=== PATIENT | male | born 1985 | race African-American/Black ===

== ENCOUNTER 2016-04-01 22:59 | Emergency (ER) | payer BC ==
[~2016-04-01] VITALS: Ht 172.7 cm; Wt 77.1 kg
[~2016-04-01 22:59] MED LIST: HYDR-2666 PO; NAPR375T3 PO
[2016-04-01 23:14] VITALS: BP 144/60
[2016-04-01] MEDS ORDERED: KETOROLAC TROMETHAMINE 30 MG/ML SYRINGE. IV ONE (23:30)
[2016-04-01 23:53] LABS: BILIRUBIN,URINE NEGATIVE (NEG); GLUCOSE,URINE NEGATIVE (NEG); NITRITE,URINE NEGATIVE (NEG); PROTEIN,URINE NEGATIVE (NEG-TRACE)
[2016-04-02 00:19] LABS: RBC,URINE OCC /HPF (0-2)
[2016-04-02 00:20] LABS: BACTERIA,URINE 0 /HPF (0-FEW); SQUAMOUS EPITHELIAL CELL,UR OCC /LPF
--- NOTE | 2016-04-02 00:30 | PHYS DOC ---
Past Medical History Past Medical History: No Pertinent History Past Surgical History: Cholecystectomy, Other Additional Past Surgical Histo: HERNIA REPAIR Alcohol Use: Occasionally Drug Use: None Adult General Chief Complaint Chief Complaint: TESTICULAR PAIN OR INJURY HPI HPI Patient is a 30 year old male who presents with sudden onset bilateral testicle pain that is worse on the right than left. He feels his testicles are twisting. He also feels penile pain. States symptoms started one hour ago while he was driving and are improving while being here. He has never had this sensation before. He denies dysuria, hematuria, abdominal pain, trauma, swelling , discoloration, penile discharge. Review of Systems Review of Systems Constitutional: Denies fever or chills [] Eyes: Denies change in visual acuity, redness, or eye pain [] HENT: Denies nasal congestion or sore throat [] Respiratory: Denies cough or shortness of breath [] Cardiovascular: No additional information not addressed in HPI [] GI: Denies abdominal pain, nausea, vomiting, bloody stools or diarrhea [] : Denies dysuria or hematuria [] Musculoskeletal: Denies back pain or joint pain [] Integument: Denies rash or skin lesions [] Neurologic: Denies headache, focal weakness or sensory changes [] Endocrine: Denies polyuria or polydipsia [] Current Medications Current Medications Current Medications Medications (Trade) Dose Ordered Sig/[facility] Start Time Stop Time Status Last Admin Dose Admin Ketorolac Tromethamine (Toradol) 15 mg 1X ONCE 04/01/16 23:30 04/01/16 23:31 DC 04/01/16 23:43 15 MG Allergies Allergies Allergies Coded Allergies Type Severity Reaction Last Updated Verified No Known Drug Allergies 05/17/14 No Physical Exam Physical Exam Constitutional: Well developed, well nourished, no acute distress, non-toxic appearance. [] HENT: Normocephalic, atraumatic, bilateral external ears normal, oropharynx moist, nose normal. [] Eyes: PERRLA, EOMI. [] Neck: Normal range of motion, supple. [] Cardiovascular:Heart rate regular rhythm [] Lungs & Thorax: Bilateral breath sounds clear to auscultation [] Abdomen: Bowel sounds normal, soft, no tenderness. [] Genitourinary: Normal-appearing external genitalia, no penile discharge or lesions, normal-appearing scrotum, no scrotum or testicle swelling or discoloration, moderate tenderness along right spermatic cord with no palpable abnormality, appropriately tender testicles with normal lie, no palpable inguinal hernias Skin: Warm, dry, no erythema, no rash. [] Back: No tenderness, no CVA tenderness. [] Extremities: ROM intact, no edema. [] Neurologic: Alert and oriented X 3, normal motor function, normal sensory function, no focal deficits noted. [] Psychologic: Affect normal, judgement normal, mood normal. [] Current Patient Data Vital Signs Vital Signs Date Time Temp Pulse Resp B/P Pulse Ox O2 Delivery O2 Flow Rate FiO2 04/01/16 23:14 99.5 108 20 144/60 98 Room Air 99.5 Lab Values Laboratory Tests Test 04/01/16 23:40 Urine Collection Type Unknown Urine Color Yellow Urine Clarity Clear Urine pH 7.0 Urine Specific [place] 1.015 Urine Protein Negativemg/dL (NEG-TRACE) Urine Glucose (UA) Negativemg/dL (NEG) Urine Ketones (Stick) Negativemg/dL (NEG) Urine Blood Negative (NEG) Urine Nitrite Negative (NEG) Urine Bilirubin Negative (NEG) Urine Urobilinogen Dipstick 1.0mg/dL (0.2 mg/dL) Urine Leukocyte Esterase Negative (NEG) Urine RBC Occ/HPF (0-2) Urine WBC 1-4/HPF (0-4) Urine Squamous Epithelial Cells Occ/LPF Urine Bacteria 0/HPF (0-FEW) Urine Mucus Slight/LPF Radiology/Procedures Radiology/Procedures Ultrasound scrotum testicles IMPRESSION - Normal blood flow identified in the bilateral testis. - Small bilateral epididymal cysts. 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 - Mild varicocele on the left. Electronically signed by: Martin Beckwith (Apr 02, 2016 00:45:53) Course & Med Decision Making Course & Med Decision Making Pertinent Labs and Imaging studies reviewed. (See chart for details) Workup is unremarkable. He was symptomatic during ultrasound, but is feeling much better with providing support to his testicles. Discussed wearing supportive underwear and taking NSAIDs for orchalgia. Return precautions given. He understands and agrees with plan. Dragon Disclaimer Dragon Disclaimer This electronic medical record was generated, in whole or in part, using a voice recognition dictation system. Departure Departure Impression: Primary Impression: Orchalgia Disposition: HOME, SELF-CARE Condition: STABLE Referrals: TAMMY HILL DO Patient Instructions: Testicular Problems and Self-Exam Additional Instructions: Take ibuprofen every 6-8 hours as needed for pain. Follow-up with your primary care doctor and urology clinic. Return for any concerns. Janet CARRIZALES MD Apr 02, 2016 00:30
--- NOTE | 2016-04-02 00:48 | RAD ---
Examination: Ultrasound scrotum HISTORY History of bilateral testicular pain for 2 hours COMPARISON None available. FINDINGS The right testis measures 4.8 x 3.5 x 2.1 centimeters. The left testis measures 4.9 x 3.5 x 1.9 centimeters. Multiple tiny calcifications likely microlithiasis identified in the right and left testis. Blood flow identified in the right and left testis. There is a cystic structure measuring 1.1 centimeter identified in the left epididymis. There is a cystic structure measuring 4 millimeters identified in the right epididymis likely epididymal cyst. There is mild varicocele identified on the left. IMPRESSION - Normal blood flow identified in the bilateral testis. - Small bilateral epididymal cysts. 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 - Mild varicocele on the left. Electronically signed by: Martin Beckwith (Apr 02, 2016 00:45:53)
== END 2016-04-02 01:00 | disposition home or self-care (01) ==
LOC: ER 22:59
DX: N50.812 Left testicular pain (principal); N50.811 Right testicular pain; Z90.49 Acquired absence of other specified parts of digestive tract
CPT/HCPCS: 76870; 81001; 96374; 99285; J1885

== ENCOUNTER 2016-04-21 19:38 | Emergency (ER) | payer BC ==
[~2016-04-21] VITALS: Ht 172.7 cm; Wt 79.4 kg
[2016-04-21 20:55] VITALS: BP 105/61
--- NOTE | 2016-04-21 21:47 | PHYS DOC ---
Past Medical History Past Medical History: No Pertinent History Past Surgical History: Cholecystectomy, Other Additional Past Surgical Histo: HERNIA REPAIR Alcohol Use: Occasionally Drug Use: None Adult General Chief Complaint Chief Complaint: DIARRHEA HPI HPI Patient is a 30 year old male who presents requesting a note to return to work. He states he had a couple bouts of vomiting and diarrhea 2 days ago and symptoms have subsided, he would like to go back to work. Review of Systems Review of Systems Constitutional: Denies fever or chills [] Eyes: Denies change in visual acuity, redness, or eye pain [] HENT: Denies nasal congestion or sore throat [] Respiratory: Denies cough or shortness of breath [] Cardiovascular: No additional information not addressed in HPI [] GI: Vomiting and diarrhea : Denies dysuria or hematuria [] Musculoskeletal: Denies back pain or joint pain [] Integument: Denies rash or skin lesions [] Neurologic: Denies headache, focal weakness or sensory changes [] Endocrine: Denies polyuria or polydipsia [] Allergies Allergies Allergies Coded Allergies Type Severity Reaction Last Updated Verified No Known Drug Allergies 05/17/14 No Physical Exam Physical Exam Constitutional: Well developed, well nourished, no acute distress, non-toxic appearance. [] HENT: Normocephalic, atraumatic, bilateral external ears normal, oropharynx moist, no oral exudates, nose normal. [] Eyes: PERRLA, EOMI, conjunctiva normal, no discharge. [] Neck: Normal range of motion, no tenderness, supple, no stridor. [] Cardiovascular:Heart rate regular rhythm, no murmur [] Lungs & Thorax: Bilateral breath sounds clear to auscultation [] Abdomen: Bowel sounds normal, soft, no tenderness, no masses, no pulsatile masses. [] Skin: Warm, dry, no erythema, no rash. [] Back: No tenderness, no CVA tenderness. [] Extremities: No tenderness, no cyanosis, no clubbing, ROM intact, no edema. [] Neurologic: Alert and oriented X 3, normal motor function, normal sensory function, no focal deficits noted. [] Psychologic: Affect normal, judgement normal, mood normal. [] Current Patient Data Vital Signs Vital Signs Date Time Temp Pulse Resp B/P Pulse Ox O2 Delivery O2 Flow Rate FiO2 04/21/16 20:55 97.8 70 16 97 Room Air 97.8 04/21/16 20:50 105/61 EKG EKG [] Radiology/Procedures Radiology/Procedures [] Course & Med Decision Making Course & Med Decision Making Pertinent Labs and Imaging studies reviewed. (See chart for details) Patient is in the ED requesting a note to return to work, he had a couple episodes of vomiting and diarrhea 2 days ago which was probably viral, he states symptoms have subsided. He works at the rehabilitation center. He was given a note to return to work, encouraged to continue pushing fluids and maintain good hand hygiene. Provided return precautions and discharged in stable condition. Dragon Disclaimer Dragon Disclaimer This electronic medical record was generated, in whole or in part, using a voice recognition dictation system. Departure Departure Impression: Primary Impression: Vomiting and diarrhea Disposition: 01 HOME, SELF-CARE Condition: STABLE Referrals: NO PCP (PCP) Follow-up with your doctor as needed in a week Patient Instructions: Diarrhea Additional Instructions: You were seen for diarrhea which you state has subsided. Push fluids, maintain good hand hygiene. Follow-up with your doctor as needed. LAURIE PURI APRN Apr 21, 2016 21:47
== END 2016-04-21 21:51 | disposition home or self-care (01) ==
LOC: ER 19:38
DX: R11.10 Vomiting, unspecified (principal); Z90.49 Acquired absence of other specified parts of digestive tract; R19.7 Diarrhea, unspecified
CPT/HCPCS: 99281

== ENCOUNTER 2019-10-25 01:29 | Emergency (ER) | payer OTHER ==
[~2019-10-25] VITALS: Ht 175.3 cm; Wt 75.0 kg
[~2019-10-25 01:29] MED LIST changes: -HYDR-2666 PO; +HYDR-2761 PO; +NAPR-695 PO; -NAPR375T3 PO
[2019-10-25 01:40] VITALS: BP 119/74
[2019-10-25] MEDS ORDERED: HYDROmorphone 2 MG/ML VIAL SQ ONE (03:00)
--- NOTE | 2019-10-25 03:15 | RAD ---
INDICATION: Reason: Crush injury / Spl. Instructions: / History: COMPARISON: None. IMPRESSION: Right hand: 3 views obtained. No definite acute fracture or dislocation. Electronically signed by: Mario East MD (10/25/2019 3:12 AM) [id number]
[2019-10-25] MEDS ORDERED: OXYC1TAB15 PO (03:43)
--- NOTE | 2019-10-25 03:44 | PHYS DOC ---
Past Medical History Past Medical History: No Pertinent History Past Surgical History: Cholecystectomy, Other Additional Past Surgical Histo: HERNIA REPAIR Smoking Status: Current Every Day Smoker Alcohol Use: Occasionally Drug Use: None General Adult EDM: Chief Complaint: THUMB HPI: HPI: Patient is a 34 year old male who presents with complaints of pain in his right thumb. Patient reports that a box fell when he lost control of it while holding it. The back box hit the ground and his hand at the same time. He now complains of pain mostly around the MCP and first meta carpal. Patient has range of motion but does have some pain with it. He denies any pain or injury above the wrist. He otherwise is been in his usual state of good health without any complaints. Review of Systems: Review of Systems: Constitutional: Denies fever or chills. [] Eyes: Denies change in visual acuity. [] HENT: Denies nasal congestion or sore throat. [] Respiratory: Denies cough or shortness of breath. [] Cardiovascular: Denies chest pain or edema. [] GI: Denies abdominal pain, nausea, vomiting, bloody stools or diarrhea. [] : Denies dysuria. [] Musculoskeletal: See HPI . [] Integument: Denies rash. [] Neurologic: Denies headache, focal weakness or sensory changes. [] Endocrine: Denies polyuria or polydipsia. [] Lymphatic: Denies swollen glands. [] Psychiatric: Denies depression or anxiety. [] Heart Score: Risk Factors: Risk Factors: DM, Current or recent (<one month) smoker, HTN, HLP, family history of CAD, obesity. Risk Scores: Score 0 - 3: 2.5% MACE over next 6 weeks - Discharge Home Score 4 - 6: 20.3% MACE over next 6 weeks - Admit for Clinical Observation Score 7 - 10: 72.7% MACE over next 6 weeks - Early Invasive Strategies Current Medications: Current Medications Medications (Trade) Dose Ordered Sig/[facility] Start Time Stop Time Status Last Admin Dose Admin Hydromorphone HCl (Dilaudid) 1 mg 1X ONCE 10/25/19 03:00 10/25/19 03:01 DC 10/25/19 03:12 1 MG Allergies: Allergies: Allergies Coded Allergies Type Severity Reaction Last Updated Verified No Known Drug Allergies 05/17/14 No Physical Exam: PE: Constitutional: Well developed, well nourished, no acute distress, non-toxic appearance. [] HENT: Normocephalic, atraumatic, bilateral external ears normal, oropharynx moist, no oral exudates, nose normal. [] Eyes: PERRLA, EOMI, conjunctiva normal, no discharge. [] Neck: Normal range of motion, no tenderness, supple, no stridor. [] Cardiovascular:Heart rate regular rhythm, no murmur [] Lungs & Thorax: Bilateral breath sounds clear to auscultation [] [] Extremities: Tenderness at the anatomical snuffbox on the right hand. No injury to the ulnar ligament was noted and there was no deformity. There was some mild soft tissue swelling. Neurovascularly he was intact distally. no cyanosis, no clubbing, ROM intact, no edema. [] Neurologic: Alert and oriented X 3, normal motor function, normal sensory function, no focal deficits noted. [] [] Current Patient Data: Vital Signs: Vital Signs Date Time Temp Pulse Resp B/P (MAP) Pulse Ox O2 Delivery O2 Flow Rate FiO2 10/25/19 03:12 20 100 Room Air 10/25/19 01:40 98.4 88 119/74 (89) 98.4 EKG: EKG: [] Radiology/Procedures: Radiology/Procedures: 0340-a thumb spica splint was applied in the usual fashion. This was performed by me using Ortho-Glass [] Course & Med Decision Making: Course & Med Decision Making Pertinent Labs and Imaging studies reviewed. (See chart for details) [] Dragon Disclaimer: Dragon Disclaimer: This electronic medical record was generated, in whole or in part, using a voice recognition dictation system. Departure Departure Impression: Primary Impression: Scaphoid fracture, wrist, closed Qualified Codes: S62.001A - Unspecified fracture of navicular [scaphoid] bone of right wrist, initial encounter for closed fracture Additional Impression: Right wrist pain Disposition: 01 HOME, SELF-CARE Condition: IMPROVED Referrals: NO PCP (PCP) LUBA CASTILLO MD Patient Instructions: Cast or Splint Care, Scaphoid Fracture, Wrist Scripts Oxycodone/Apap 5-325 (PERCOCET 5-325 MG TABLET ) 1 Each Tablet 1-2 EACH PO PRN TID PRN for SEVERE PAIN 7-10, #20 TAB pain Prov: MONICA AN MD 10/25/19 Justicifation of Admission Dx: Justifications for Admission: Justification of Admission Dx: N/A MONICA AN MD Oct 25, 2019 03:44
== END 2019-10-25 04:01 | disposition home or self-care (01) ==
LOC: ER 01:29
DX: S92.251A Displaced fracture of navicular [scaphoid] of right foot, initial encounter for closed fracture (principal); R60.0 Localized edema; M25.531 Pain in right wrist; F17.200 Nicotine dependence, unspecified, uncomplicated; Z90.49 Acquired absence of other specified parts of digestive tract; Z98.890 Other specified postprocedural states; W20.8XXA Other cause of strike by thrown, projected or falling object, initial encounter; Y93.89 Activity, other specified; Y92.89 Other specified places as the place of occurrence of the external cause; Y99.8 Other external cause status
CPT/HCPCS: 29125; 73130; 96372; 99283; J1170; 29515

== ENCOUNTER 2020-09-30 13:44 | Emergency (ER) | payer SELFPAY ==
[~2020-09-30] VITALS: Ht 175.3 cm; Wt 79.5 kg
[~2020-09-30 13:44] MED LIST changes: +OXYC1TAB15 PO
[2020-09-30 15:45] VITALS: BP 121/68
[2020-09-30] MEDS ORDERED: LIDOCAINE 2%/EPI 1:100,000 20 ML VIAL. INJ ONE (16:15)
[2020-09-30] MEDS ORDERED: CLIN150C15 PO (17:08)
--- NOTE | 2020-09-30 17:08 | ED.ADGEN ---
Past Medical History Past Medical History: No Pertinent History Past Surgical History: No Surgical History Additional Past Surgical Histo: HERNIA REPAIR Smoking Status: Current Every Day Smoker Alcohol Use: Occasionally Drug Use: None General Adult EDM: Chief Complaint: ABSCESS HPI: HPI: Patient is a 35 year old AA male who presents to the emergency department with complaints of a tender area to his left upper back. Patient states there has been a swollen area for about the last year but over the last week it became red hot and tender to touch she denies any drainage from the site. Patient denies any fever, cough, body aches, fatigue, nausea, vomiting, diarrhea, sore throat, rash, or shortness of breath. He states his last tetanus was less than 5 years ago. The patient currently rates his pain a 10 out of 10 on pain scale, the pain is worse if the area is touched. Review of Systems: Review of Systems: Complete ROS is negative unless otherwise noted in HPI. Current Medications: Current Medications Medications (Trade) Dose Ordered Sig/[facility] Start Time Stop Time Status Last Admin Dose Admin Lidocaine/ Epinephrine (LIDOCAINE 2%-EPI 1:100,000 multi-dose) 20 ml 1X ONCE 09/30/20 16:15 09/30/20 16:16 DC Allergies: Allergies: Allergies Coded Allergies Type Severity Reaction Last Updated Verified No Known Drug Allergies 05/17/14 No Physical Exam: PE: See Above Constitutional: Well developed, well nourished, no acute distress, non-toxic appearance. [] HENT: Normocephalic, atraumatic, bilateral external ears normal, nose normal. [] Eyes: PERRLA, EOMI, conjunctiva normal, no discharge. [] Neck: Normal range of motion, no stridor. [] Cardiovascular:Heart rate regular rhythm Lungs & Thorax: Respirations even and unlabored, no retractions, no respiratory distress Skin: Warm, dry; 2 cm diameter area of erythema, edema, with central fluctuant area to left upper back, consistent with cutaneous abscess/sebaceous cyst. Extremities: No cyanosis, ROM intact, no edema. [] Neurologic: Alert and oriented X 3, no focal deficits noted. [] Psychologic: Affect normal, judgement normal, mood normal. [] Current Patient Data: Vital Signs: Vital Signs Date Time Temp Pulse Resp B/P (MAP) Pulse Ox O2 Delivery O2 Flow Rate FiO2 09/30/20 15:45 98.5 81 16 121/68 100 Room Air 98.5 EKG: EKG: [] Heart Score: C/O Chest Pain: No Radiology/Procedures: Radiology/Procedures: Indication: abscess Procedure: The patient was positioned appropriately. Local anesthesia was 2% lidocaine with epi an incision was then made over the apex of the lesion and moderate amount of foul-smelling bloody pus material was expressed. I was able to remove the sac of the cyst, the incision site was packed with iodoform gauze. Patient's tetanus was up-to-date. The patient tolerated the procedure well. Complications: none, minimal blood loss. Course & Med Decision Making: Course & Med Decision Making Pertinent Labs and Imaging studies reviewed. (See chart for details) [] Dragon Disclaimer: Dragon Disclaimer: This electronic medical record was generated, in whole or in part, using a voice recognition dictation system. Departure Departure Impression: Primary Impression: Infected sebaceous cyst of skin Disposition: HOME / SELF CARE / HOMELESS Condition: STABLE Referrals: NO PCP (PCP) Patient Instructions: Epidermal Cyst, [id number], Incision and Drainage, Care After Additional Instructions: Fill the prescription(s) and use as directed. You may take tylenol or ibuprofen as needed for pain. Leave the Dressing that was placed in the ER in place for the next 24 hours, then change the dressing twice daily and apply antibiotic ointment as needed. You may apply warm, moist packs to the area to help decrease discomfort. Follow up with your primary care doctor or return to the ER in 48 hours to have wound rechecked. Return to the ER sooner if your symptoms worsen or fever develops. Scripts Clindamycin Hcl (CLINDAMYCIN HCL) 150 Mg Capsule 450 MG PO TID for 7 Days, #63 CAP 0 Refills Prov: NOREEN GARCIA APRN 09/30/20 NOREEN GARCIA APRN Sep 30, 2020 17:08
== END 2020-09-30 17:17 | disposition home or self-care (01) ==
LOC: ER 13:44
DX: L02.212 Cutaneous abscess of back [any part, except buttock and flank] (principal); L72.3 Sebaceous cyst; F17.200 Nicotine dependence, unspecified, uncomplicated
CPT/HCPCS: 10060; 99283

== ENCOUNTER 2020-10-02 17:34 | Emergency (ER) | payer SELFPAY ==
[~2020-10-02] VITALS: Ht 175.3 cm; Wt 76.7 kg
[~2020-10-02 17:34] MED LIST changes: +CLIN150C16 PO
[2020-10-02 18:03] VITALS: BP 113/63
== END 2020-10-02 19:23 | disposition left against medical advice (07) ==
LOC: ER 17:34
DX: S11.91XD Laceration without foreign body of unspecified part of neck, subsequent encounter (principal); Z53.21 Procedure and treatment not carried out due to patient leaving prior to being seen by health care provider; X58.XXXD Exposure to other specified factors, subsequent encounter

== ENCOUNTER 2020-10-03 08:37 | Emergency (ER) | payer SELFPAY ==
[~2020-10-03] VITALS: Ht 175.3 cm; Wt 77.7 kg
[2020-10-03 09:00] VITALS: BP 117/77
--- NOTE | 2020-10-03 10:32 | PHYS DOC ---
Past Medical History Past Medical History: No Pertinent History Past Surgical History: Cholecystectomy, Other Additional Past Surgical Histo: HERNIA REPAIR Smoking Status: Current Every Day Smoker Alcohol Use: Occasionally Drug Use: None General Adult EDM: Chief Complaint: WOUND CHECK HPI: HPI: 35-year-old male past medical history of tobacco dependence, presents the ED for wound check of an infected sebaceous cyst on upper back that was I&D 3 days ago on 09/30. Patient reports he is compliant with his clindamycin but has not taken it today. States he removed the dressings today, packing is still intact. States pain has improved. Reports no associated rash or fever. Has no routine primary care physician but states his insurance is renewed on October 05. No known history of MRSA. Patient recently started a new job (maintenance) and is wearing a dry fit shirt at work that he often sweats in, unable to wash the nicki rt daily. Review of Systems: Review of Systems: Constitutional: Denies fever or chills. [] Eyes: Denies change in visual acuity. [] HENT: Denies nasal congestion or sore throat. [] Respiratory: Denies cough or shortness of breath. [] Cardiovascular: Denies chest pain or edema. [] GI: Denies nausea, vomiting, Integument: Denies rash or diaphoresis Neurologic: Denies focal weakness or sensory changes. [] Psychiatric: Denies depression or anxiety. [] Heart Score: C/O Chest Pain: No Risk Factors: Risk Factors: DM, Current or recent (<one month) smoker, HTN, HLP, family history of CAD, obesity. Risk Scores: Score 0 - 3: 2.5% MACE over next 6 weeks - Discharge Home Score 4 - 6: 20.3% MACE over next 6 weeks - Admit for Clinical Observation Score 7 - 10: 72.7% MACE over next 6 weeks - Early Invasive Strategies Allergies: Allergies: Allergies Coded Allergies Type Severity Reaction Last Updated Verified No Known Drug Allergies 05/17/14 No Physical Exam: PE: Constitutional: Well developed, well nourished, no acute distress, non-toxic appearance, afebrile, fit young healthy male HENT: Normocephalic, atraumatic, Eyes: EOMI, conjunctiva normal, no discharge. Neck: Normal range of motion, supple, Cardiovascular: S1/2 present, regular rhythm Lungs & Thorax: Speaking in full sentences, bilateral equal chest rise, no tachypnea or increased work of breathing Skin: Warm, dry, no erythema, no rash. [] Back: No tenderness, no CVA tenderness, 2.5 x 2.5 area of induration over upper back between shoulder blades with 3 mm opening with packing draining less than 1 cc purulent material, no associated rash/erythema, wound was gently repacked and covered with sterile dressings Extremities: No tenderness, no cyanosis, Neurologic: Alert and oriented X 3,no focal deficits noted. [] Psychologic: Affect normal, judgement normal, mood normal. [] Current Patient Data: Vital Signs: Vital Signs Date Time Temp Pulse Resp B/P (MAP) Pulse Ox O2 Delivery O2 Flow Rate FiO2 10/03/20 09:00 98.9 69 14 117/77 (89) 98 Room Air 98.9 EKG: EKG: [] Radiology/Procedures: Radiology/Procedures: [] Course & Med Decision Making: Course & Med Decision Making Pertinent Labs and Imaging studies reviewed. (See chart for details) Concern for sebaceous cyst, infection was fully cleared. Wound was gently repacked and recommend follow-up in 2 to 3 days for packing to be fully removed. Will discharge home with strict ED return precautions were given for drainage, rashor worsening pain at site. Encouraged urgent outpatient follow-up with PMD. Life-threatening processes were considered but are low suspicion at this time, given history, physical exam and ED workup. Pt was educated on all prescription medications and adverse effects. All patient's questions were answered and pt was stable at time of discharge. Life/limb-threatening differential includes but is not limited to, erythema multiforme, trujillo-rosario syndrome, toxic epidermal necrolysis, staphylococcal scalded skin syndrome, necrotizing fasciitis/myositis/cellulitis, purpura fulminans, heparin or warfarin induced skin necrosis, angioedema, anaphylaxis drug rash, disseminated intravascular coagulation, disseminated gonococcal disease, vasculitis, septicemia, petechial disorder or coagulopathy, viral exanthem, Kawasaki's disease or life-threatening burn requiring burn center management or escharotomy. I have spoken with the patient and/or caregivers. I explained the patient's condition, diagnoses and treatment plan based on the information available to me at this time. I have answered the patient and/or caregiver's questions and addressed any concerns. The patient and/or caregivers have a good understanding of patient's diagnosis, condition and treatment plan as can be expected at this point. Vital signs have been stable. Patient's condition is stable and appropriate for discharge from the emergency department. Patient will pursue further outpatient evaluation with primary care physician or other designated or consulting physician as outlined in the discharge instructions. The patient and/or caregivers are agreeable to this plan of care and follow-up instructions have been explained in detail. The patient and/or caregivers have received these instructions in written form and have expressed an understanding of the discharge instructions. The patient and/or caregivers are aware that any significant change of condition or worsening of symptoms should prompt immediate return to this or the closest emergency department or call to [facility] Disclaimer: Nevaeh Disclaimer: This electronic medical record was generated, in whole or in part, using a voice recognition dictation system. Departure Departure Impression: Primary Impression: Encounter for wound re-check Additional Impressions: Encounter for abscess packing removal Infected sebaceous cyst of skin Disposition: HOME / SELF CARE / HOMELESS Condition: STABLE Referrals: NO PCP (PCP) Follow-up with your primary care physician in 48-72 hours TO REMOVE PACKING OR FOLLOW UP WITH FAMILY MEDICINE: [id number] [place] [address] Patient Instructions: Abscess, Incision and Drainage, Care After Additional Instructions: EMERGENCY DEPARTMENT GENERAL DISCHARGE INSTRUCTIONS Thank you for coming to [facility] Emergency Department (ED) today and trusting us with you care. We trust that you had a positive experience in our Emergency Department. If you wish to speak to the department management, you may call the Director at [phone]. YOUR FOLLOW UP INSTRUCTIONS ARE FOLLOWS: 1. Do you have a private Doctor? If you do not have a private doctor, please ask for a resource list of physicians or clinics that may be able to assist you with follow up care. ADDITIONAL INSTRUCTIONS AND INFORMATION: 1. Your care today has been supervised by a physician who is specially trained in emergency care. Many problems require more than one evaluation for a complete diagnosis and treatment. We recommend that you schedule your follow up appointment as recommended to ensure complete treatment of you illness or injury. If you are unable to obtain follow up care and continue to have a problem, or if your condition worsens, we recommend that you return to the ED. 2. We are not able to safely determine your condition over the phone nor are we able to give sound medical advice over the phone. For these safety reasons, if you call for medical advice we will ask you to come to the ED for further evaluation. 3. If you have any questions regarding these discharge instructions please call the ED at [phone]. SAFETY INFORMATION: In the interest of safety, wellness, and injury prevention; we encourage you to wear your sealbelt, if you smoke; quite smoking, and we encourage family to use a protective helmet for bicycling and other sporting events that present an increased risk for head injury. IF YOUR SYMPTOMS WORSEN OR NEW SYMPTOMS DEVELOP, OR YOU HAVE CONCERNS ABOUT YOUR CONDITION; OR IF YOUR CONDITION WORSENS WHILE YOU ARE WAITING FOR YOUR FOLLOW UP APPOINT MENT; EITHER CONTACT YOUR PRIMARY CARE DOCTOR, THE PHYSICIAN WHOSE NAME AND NUMBER YOU WERE GIVEN, OR RETURN TO THE ED IMMEDIATELY. DARI GALLARDO DO Oct 03, 2020 10:32
== END 2020-10-03 11:10 | disposition home or self-care (01) ==
LOC: ER 08:37
DX: L72.3 Sebaceous cyst (principal); Z87.891 Personal history of nicotine dependence
CPT/HCPCS: 99281